=== PATIENT | male | born 2000 | race Caucasian/White ===

== ENCOUNTER 2021-09-25 08:48 | Day surgery (SDC) | payer BC ==
[2021-09-25 09:25] LABS: #Eosinphils 0.2 thou/uL (0.0-0.7); #Lymphocytes 1.8 thou/uL (1.20-3.40); #Neutrophils 14.2 thou/uL (1.40-6.50); %Basophils 0.2 % (0.0-1.0); %Eosinophils 1.3 % (0.0-10.0); %Lymphocytes 10.4 % (21.0-51.0); %Monocytes 5.8 % (0.0-10.0); %Neutrophils 82.3 % (42.0-75.0); Hemoglobin 14.2 g/dL (14.0-18.0); Mean Corpuscular HGB CONC 33.8 g/dL (32.0-36.0); Mean Corpuscular Hemoglobin 30.4 pg (27.0-31.0); Mean Corpuscular Volume 89.8 fL (78.0-98.0); Mean Platelet Volume 7.2 fL (7.4-10.4); Platelet Count 310 thou/uL (130-400); RBC Distribution Width 12.2 % (11.5-14.5); Red Blood Cell (RBC) Count 4.67 mill/uL (4.70-6.10); White Blood Cell (WBC) Count 17.3 thou/uL (4.8-10.8)
[2021-09-25 09:48] LABS: ALT (SGPT) 31 U/L (8-55); AST (SGOT) 31 U/L (5-34); Albumin 4.2 g/dL (3.5-5.0); Alkaline Phosphatase 94 U/L (40-110); Anion Gap 12 mmol/L (10-20); BUN (Urea Nitrogen) 11 mg/dL (8.9-20.6); Calc. Creatinine Clearance 0 mL/min (70-130); Calcium 9.1 mg/dL (7.8-10.44); Carbon Dioxide 24 mmol/L (22-29); Chloride 105 mmol/L (98-107); Globulin 2.7 g/dL (2.4-3.5); Glucose 92 mg/dL (70-105); Lipase 16 U/L (8-78); Potassium 3.6 mmol/L (3.5-5.1); Protein, Total 6.9 g/dL (6.0-8.3); Sodium 137 mmol/L (136-145)
[2021-09-25] MEDS ORDERED: Iopamidol-370 76% 500 ML 1 ML ONE (10:00)
[2021-09-25] MEDS ORDERED: Ondansetron PF 4 MG/2 ML Vial ONE ×3 (10:17→13:39)
[2021-09-25] MEDS ORDERED: Morphine 4 MG/ML VIAL ONE (10:17)
[2021-09-25] MEDS ORDERED: Piperacillin/Tazobactam 4.5 GM VIAL ONE (10:58)
[2021-09-25] MEDS ORDERED: Lidocaine 1% w/Epinephrine 1:100K 20 ML VIAL ONE (11:25)
[2021-09-25] MEDS ORDERED: Bupivacaine 0.25% HCL 30 ML VIAL ONE (11:25)
[2021-09-25 11:37] LABS: Bilirubin Negative (Negative); Blood, Urine Negative (Negative); Clarity Clear (Clear); Glucose, Urine (Dipstick) Normal (Negative); Ketone, Urine Negative (Negative); Leukocyte Negative Leu/uL (Negative); Nitrite Negative (Negative); Protein, Urine (Dipstick) Negative (Neg-Trace); Specific Gravity, Urine 1.023 (1.002-1.036); Urobilinogen Normal mg/dL (Less than 2)
[2021-09-25] MEDS ORDERED: Dexamethasone 20 MG/5 ML VIAL ONE (11:40)
[2021-09-25] MEDS ORDERED: Lidocaine 1% PF 5 ML VIAL ONE (11:40)
[2021-09-25] MEDS ORDERED: PROPOFOL 200 MG/20 ML VIAL ONE (11:40)
[2021-09-25] MEDS ORDERED: Rocuronium Bromide 10 MG/ML (10ML VIAL) ONE (11:40)
[2021-09-25] MEDS ORDERED: Fentanyl 100 MCG/2 ML VIAL ONE ×2 (12:07→13:39)
[2021-09-25] MEDS ORDERED: Midazolam HCl 2 mg/2 ml Vial ONE (12:07)
[2021-09-25 12:14] LABS: SARS-CoV-2 NAA Rapid Test Not Detected (NotDetected)
[2021-09-25] MEDS ORDERED: SUGAMMADEX SODIUM 200 MG/2 ML VIAL ONE (12:35)
[2021-09-25] MEDS ORDERED: Meperidine HCl/PF 25 MG/ML VIAL ONE (13:10)
[2021-09-25] MEDS ORDERED: Promethazine HCl 25 MG/ML VIAL ONE (13:52)
== END 2021-09-25 15:50 | disposition home or self-care (01) ==
LOC: ERS 08:48 → SDC 11:38
PROVIDERS: ATTEND Surgery
PROC: 0DTJ4ZZ Resection of Appendix, Percutaneous Endoscopic Approach (ICD-10-PCS; principal; 2021-09-25)
DX: K35.80 Unspecified acute appendicitis (principal); Z20.822 Contact with and (suspected) exposure to COVID-19
CPT/HCPCS: 36415; 74177; 80053; 81003; 83690; 85025; 88304; J1100; J2175; J2250; J2270; J2405; J2543; J2550; J2704; J3010; Q9967; S0020; U0002